=== PATIENT | female | born 1980 | race Caucasian/White ===

== ENCOUNTER 2025-04-12 15:30 | Emergency (ER) | payer OTHER ==
[~2025-04-12] VITALS: Ht 172.7 cm; Wt 79.0 kg
[2025-04-12] MEDS ORDERED: LYLLANA TD (16:44)
[2025-04-12] MEDS ORDERED: LOSARTAN POTASS50 MG PO (16:44)
[2025-04-12] MEDS ORDERED: SODIUM CHLORIDE 0.9% 1,000 ML IV ONE (16:45)
[2025-04-12 17:58] VITALS: BP 140/94
--- NOTE | 2025-04-13 14:37 | EKG ---
[facility] [address] [place] [address] Signed Sinus bradycardia Otherwise normal ECG No previous ECGs available Confirmed by Viji Sauer DO ([id number]) on 04/13/2025 2:37:41 PM Electronically Signed By: VIJI SAUER DO 04/13/25 1437 PATIENT NAME: LES SANTOS Electrocardiogram DATE OF : 78 PHYSICIAN: VIJI SAUER DO REPORT #: [id number] REPORT IS CONFIDENTIAL AND NOT TO BE RELEASED WITHOUT AUTHORIZATION
== END 2025-04-12 17:58 | disposition home or self-care (01) ==
LOC: ED 15:30
DX: R42 Dizziness and giddiness (principal); R55 Syncope and collapse; T39.1X5A Adverse effect of 4-Aminophenol derivatives, initial encounter; T48.3X5A Adverse effect of antitussives, initial encounter; T44.4X5A Adverse effect of predominantly alpha-adrenoreceptor agonists, initial encounter; I10 Essential (primary) hypertension; Z79.899 Other long term (current) drug therapy; Z88.0 Allergy status to penicillin
CPT/HCPCS: 93005; 93010; 99284; J7030